=== PATIENT | female | born 2005 | race Caucasian/White ===

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

== ENCOUNTER 2023-10-21 02:57 | Emergency (ER) | payer OTHER, SELFPAY ==
[2023-10-21] VITALS (7 sets, daily range): BP systolic 117–132; BP diastolic 57–81; PULSE 64–106; RESP 18–26; TEMP 36.6–37.6; O2SAT 91–100; BMI 21.0
--- NOTE | 2023-10-21 03:02 | DI.RAD.S_ITS ---
PROCEDURE: XR CHEST 1V INDICATIONS: asthma exacerbation TECHNIQUE: One view of the chest was acquired. COMPARISON: None. FINDINGS: Surgical changes and devices: None. Lungs and pleura: Lungs are clear. No pleural effusions or pneumothorax. Mediastinum: Mediastinal contours appear normal. Heart size is normal. Bones and chest wall: No suspicious bony lesions. Overlying soft tissues appear unremarkable. IMPRESSION: No acute pulmonary process. Dictated by: Petty June M.D. on 10/21/2023 at 10:27 Approved by: Petty June M.D. on 10/21/2023 at 10:28
--- NOTE | 2023-10-21 03:03 | ED.SOB ---
HPI - SOB/Dyspnea General Chief Complaint: Shortness of Breath/Dyspnea Stated Complaint: asthma attack Time Seen by Provider: 10/21/23 02:59 Source: patient, RN notes reviewed and old records reviewed Mode of arrival: Family Vehicle Limitations: no limitations History of Present Illness HPI Narrative: 18-year-old female with history of asthma, chronic tobacco use in the form of vaping who presents with complaint of asthma exacerbation. Patient states she has had worsening symptoms today, increased chest tightness wheezing, patient states no fevers. Has had a cough but nonproductive. Notes some increased seasonal allergies which they think or exacerbating symptoms. No nausea or vomiting. No swelling of extremities. No GI symptoms. Patient states uses albuterol has used multiple times this evening without any improvement. Did use Breo inhaler but has not been using this regularly. Patient has been admitted for asthma 2 prior times but states they were discharged home the same day. Patient states no other daily prescription medications. Denies any surgeries. No known drug allergies. Does vape tobacco, no regular alcohol or recreational drugs. Related Data Previous Rx's Medication Instructions Recorded prednisone 10 mg tablets in a dose See Rx Instructions PO .COMPLEX 10/21/23 pack #21 ea Allergies Allergy/AdvReac Type Severity Reaction Status Date / Time No Known Drug Allergies Allergy Verified 04/27/18 13:26 Review of Systems Review of Systems ROS Unobtainable: All systems reviewed & are unremarkable except as noted in HPI and below Patient History Social History Smoking Status: Never smoker Smoking Status: Never smoker Exam Narrative Exam Narrative: GEN: well nourished, well appearing female, alert and oriented x 3, patient appears to be in moderate distress. HEENT: Atraumatic, pupils are equal round reactive to light, extraocular movements are intact, nares are clear, there is no conjunctival pallor. Throat is clear without any exudates, erythema, tonsillar enlargement or uvular deviation HEART: Tachycardic but regular rate and rhythm without murmur, clicks, rubs. LUNGS:Lungs bilateral inspiratory and expiratory wheezes upper and lower lobes, no rales, crackles, chest moves symmetrically, positive for tachypnea, positive for accessory muscle use. Speaks in 2-3 word sentences. Patient was able to ambulate into the department. ABD:bowel sounds normal, soft, non-tender, no guarding, rebound, rigidity, no masses noted, no hepatosplenomegaly MSCL: Non-tender, no muscle atrophy, muscles strength 5/5 upper and lower extremities, full range of motion, normal gait NEURO:CN 2-12 intact, sensation normal. SKIN: No rash, erythema or other skin changes. Initial Vital Signs Initial Vital Signs: Vital Signs Pulse Rate 105 H 10/21/23 03:01 Pulse Oximetry 91 10/21/23 03:01 Course Orders Ordered: ED Orders 10/21/23 03:02 Chest [XR chest 1V] Stat 10/21/23 03:06 CBC Auto Diff [Complete Blood Count AUTO DIFF] Stat CMP [Comprehensive Metabolic Panel] Stat Discontinued Medications Albuterol (Albuterol 2.5 Mg/3 Ml Neb (Adult)) 10 mg INH NOW ONE Stop: 10/21/23 03:14 Last Admin: 10/21/23 03:15 Dose: 10 mg Documented By: LIBRA Albuterol/Ipratropium (Albuterol/Ipratropium 3 Ml Ampul) 3 ml INH NOW ONE Stop: 10/21/23 03:03 Last Admin: 10/21/23 03:14 Dose: 3 ml Documented By: LIBRA Diphenhydramine HCl (Diphenhydramine 50 Mg/Ml Vial) 50 mg IV NOW ONE Stop: 10/21/23 03:08 Last Admin: 10/21/23 03:12 Dose: 50 mg Documented By: LIBRA Famotidine (Famotidine 20 Mg/2 Ml Vial) 20 mg IV NOW BLACK Last Admin: 10/21/23 03:12 Dose: 20 mg Documented By: LIBRA Sodium Chloride (Normal Saline 0.9%) 1,000 mls @ 1,000 mls/hr IV BOLUS ONE Stop: 10/21/23 04:01 Last Admin: 10/21/23 03:15 Dose: 1,000 mls/hr Documented By: LIBRA Methylprednisolone (Methylprednisolone 125 Mg/2 Ml Vial) 125 mg IV NOW ONE Stop: 10/21/23 03:03 Last Admin: 10/21/23 03:13 Dose: 125 mg Documented By: LIBRA Vital Signs Vital signs: Vital Signs - 8 hr 10/21/23 03:01 10/21/23 03:05 10/21/23 03:30 Temperature 99.7 F H Pulse Rate 105 H 106 H Respiratory Rate 26 H Blood Pressure 117/81 123/62 Pulse Oximetry 91 91 Oxygen Delivery Method Room Air 10/21/23 03:30 10/21/23 04:00 10/21/23 04:00 Temperature Pulse Rate 84 81 Respiratory Rate Blood Pressure 131/61 Pulse Oximetry 100 100 100 Oxygen Delivery Method Room Air 10/21/23 04:30 10/21/23 04:30 10/21/23 04:52 Temperature Pulse Rate 79 Respiratory Rate Blood Pressure 132/60 128/57 L Pulse Oximetry 98 Oxygen Delivery Method 10/21/23 04:52 10/21/23 04:58 Temperature 97.9 F Pulse Rate 105 H 64 Respiratory Rate 18 Blood Pressure 122/78 Pulse Oximetry 99 99 Oxygen Delivery Method Room Air MDM - SOB/Dyspnea Lab Data 10/21/23 03:06 10/21/23 03:06 Labs: Lab Results 10/21/23 Range/Units 03:06 WBC 12.0 H (4.5-11.0) X10^3/uL RBC 5.17 (4.0-5.2) X10^6/uL Hgb 15.7 (12.0-16.0) g/dL Hct 46.0 (36-46) % MCV 89.0 (80-100) fL MCH 30.3 (26-34) PG MCHC 34.1 (30-36) % RDW 13.0 (11.6-14.8) % Plt Count 283 (150-400) X10^3/uL Neut % (Auto) 50.0 (50-75) % Lymph % (Auto) 34.4 (25-40) % [place] % (Auto) 8.5 (3-14) % Eos % (Auto) 6.4 H (2-4) % Baso % (Auto) 0.7 (0-2) % Neut # (Auto) 6000 (3617-3709) /uL Lymph # (Auto) 4100 (7266-0261) /uL [place] # (Auto) 1000 H (0-900) /uL Eos # (Auto) 800 H (0-450) /uL Baso # (Auto) 100 (0-100) /uL Sodium 141 (137-145) mmol/L Potassium 3.7 (3.4-5.1) mmol/L Chloride 111 H (98-107) mmol/L Carbon Dioxide 21 L (22-32) mmol/L BUN 16 (7-17) mg/dL Creatinine 0.79 (0.52-1.04) mg/dL Estimated GFR > 60 (>60) mL/min BUN/Creatinine Ratio 20.3 (6-22) Glucose 120 H (70-100) mg/dL Calcium 9.7 (8.4-10.2) mg/dL Total Bilirubin 0.8 (0.2-1.3) mg/dL AST 32 (14-36) IU/L ALT 28 (<35) IU/L Alkaline Phosphatase 66 (38-126) U/L Total Protein 8.3 H (6.3-8.2) g/dL Albumin 4.9 (3.5-5.0) g/dL Globulin 3.4 (1.7-4.1) g/dL Albumin/Globulin Ratio 1.4 (1.0-2.8) MDM Narrative Medical decision making narrative: 18-year-old female with known history of asthma states seems to be having a flare relates to likely seasonal although patient notes does have a rash. No tightness in the throat lips or tongue. No nausea or vomiting or diarrhea. Patient states they do have a lot of skin issues states they do sometimes get tight with skin issues. We will add on Benadryl and Pepcid along with Solu-Medrol. Patient received DuoNeb along with 10 mg of albuterol and on recheck Labs count 12, hemoglobin 15, platelets of 283. Chemistries Chest x-ray, no acute change lungs are hyperexpanded. Normal heart size no retrocardiac opacity, no pneumothorax no consolidation or large pleural effusion. Recheck after fluids, Solu-Medrol, DuoNeb as well as 10 mg albuterol, Pepcid and Benadryl treatments: Patient's wheezing is improving although still present. She states she feels like she is opening up. Patient's part way through her initial albuterol nebulizer. Recheck patient has almost completed 10 mg albuterol. Lungs are now almost completely clear. Patient states feels significantly improved. Plantar to monitor for a period of time after breathing treatments completed continues to be improved discharged home with oral prednisone, refill of albuterol as needed and [id number] antihistamine. Patient had recheck after completing her albuterol sort hour afterwards patient continues to be clear. She would like to return home. She states she does not use a spacer she does not want 1 states they are not helpful. Did try to discuss that they help allow for the albuterol to get into the lungs better. Patient states she has plenty of albuterol at home. Given prescription for prednisone encouraged state [id number] antihistamine. Patient was also encouraged not to vape. Discharge Plan Departure Patient Disposition: Home Clinical Impression: Asthma with exacerbation Activity Restrictions/Additional Instructions: Follow up as needed. Take prednisone until completed. Would recommend taking [id number] antihistamine such as loratadine 10 mg once daily. You can use your albuterol inhaler, 4 to 8 puffs every 4 hours as needed. Prescription sent to [facility] [place]. Please return if you have new or worsening symptoms increasing shortness of breath, difficulty with breathing, Prescriptions: New prednisone 10 mg tablets,dose pack See Rx Instructions .ROUTE .COMPLEX Qty: 21 0RF Rx Instructions: 6 tabs p.o. x1 day, then 5 tabs p.o. x1 day, then 4 tablets p.o. x1 day, then 3 tabs p.o. x1 day, then 2 tabs p.o. x1 day, then 1 tab p.o. x1 day Stand Alone Forms: Patient Portal/API
[2023-10-21] MEDS: FAMOTIDINE 20 MG/2 ML VIAL IV (03:12)
[2023-10-21] MEDS: diphenhydrAMINE 50 MG/ML VIAL IV (03:12)
[2023-10-21] MEDS: methylPREDNISolone 125 MG/2 ML VIAL IV (03:13)
[2023-10-21] MEDS: ALBUTEROL/IPRATROPIUM 3 ML AMPUL INH (03:14)
[2023-10-21] MEDS: ALBUTEROL 2.5 MG/3 ML NEB (ADULT) 10 MG INH (03:15)
[2023-10-21] MEDS: SODIUM CHLORIDE 0.9% 1,000 ML 1000 ML IV (03:15)
[2023-10-21 03:20] LABS: Add Manual Diff / Slide Review NO; Basophils Absolute Auto 100 /uL (0-100); Basophils Percent Auto 0.7 % (0-2); Eosinophils Absolute Auto 800 /uL (0-450); Eosinophils Percent Auto 6.4 % (2-4); Hemoglobin 15.7 g/dL (12.0-16.0); Lymphocytes Absolute Auto 4100 /uL (1100-4500); Lymphocytes Percent Auto 34.4 % (25-40); Mean Corpuscular HGB Conc 34.1 % (30-36); Mean Corpuscular Hemoglobin 30.3 PG (26-34); Monocytes Absolute Auto 1000 /uL (0-900); Monocytes Percent Auto 8.5 % (3-14); Neutrophils Absolute Auto 6000 /uL (1500-7000); Platelet Count 283 X10^3/uL (150-400); Red Blood Cell Count 5.17 X10^6/uL (4.0-5.2)
[2023-10-21 03:30] LABS: Alanine Aminotransferase 28 IU/L (<35); Albumin 4.9 g/dL (3.5-5.0); Albumin Globulin Ratio 1.4 (1.0-2.8); Alkaline Phosphatase 66 U/L (38-126); Aspartate Aminotransferase 32 IU/L (14-36); BUN Creatinine Ratio 20.3 (6-22); Bilirubin Total 0.8 mg/dL (0.2-1.3); Blood Urea Nitrogen 16 mg/dL (7-17); Calcium 9.7 mg/dL (8.4-10.2); Carbon Dioxide 21 mmol/L (22-32); Chloride 111 mmol/L (98-107); Estimated Glomerular Filt Rate > 60 mL/min (>60); Globulin 3.4 g/dL (1.7-4.1); Glucose 120 mg/dL (70-100); HEMOLYSIS < 15 (0-50); Potassium 3.7 mmol/L (3.4-5.1); Sodium 141 mmol/L (137-145); Total Protein 8.3 g/dL (6.3-8.2)
--- NOTE | 2023-10-21 04:15 | PC.NURSE ---
Pt says that she is feeling much better. Feels like she doesn't need an additional dose of albuterol.
== END 2023-10-21 04:59 | disposition home or self-care (01) ==
PROVIDERS: Emergency Provider Emergency Medicine
DX: J45.901 Unspecified asthma with (acute) exacerbation (principal)
CPT/HCPCS: 36415; 71045; 80053; 85025; 96374; 96375; 99284; J1200; J2919; J7613